=== PATIENT | female | born 1980 ===

== ENCOUNTER 2019-10-01 08:38 | Outpatient (CLI) | payer OTHER | END 2019-10-01 09:04 | disposition home or self-care (01) | LOC: MAMO-SONO 08:38 | DX: N60.11 Diffuse cystic mastopathy of right breast (principal); N60.12 Diffuse cystic mastopathy of left breast; Z12.31 Encounter for screening mammogram for malignant neoplasm of breast; R10.2 Pelvic and perineal pain ==

== ENCOUNTER 2021-01-30 08:22 | Outpatient (CLI) | payer OTHER | END 2021-01-30 08:36 | disposition home or self-care (01) | LOC: MAMO-SONO 08:22 | PROVIDERS: ATTEND Family Medicine | DX: N60.11 Diffuse cystic mastopathy of right breast (principal); N60.12 Diffuse cystic mastopathy of left breast ==

== ENCOUNTER 2021-03-23 10:35 | Outpatient (CLI) | payer OTHER | END 2021-03-23 10:54 | disposition home or self-care (01) | LOC: SONOGRAMA 10:35 | PROVIDERS: ATTEND Family Medicine | DX: C54.1 Malignant neoplasm of endometrium (principal); D25.9 Leiomyoma of uterus, unspecified ==

== ENCOUNTER 2021-03-30 05:45 | Day surgery (SDC) | payer OTHER | END 2021-03-30 17:20 | disposition home or self-care (01) | LOC: CIR.AMB 05:45 | PROVIDERS: ATTEND Surgery | DX: N60.82 Other benign mammary dysplasias of left breast (principal); N60.21 Fibroadenosis of right breast; Z90.13 Acquired absence of bilateral breasts and nipples; Z20.822 Contact with and (suspected) exposure to COVID-19 ==

== ENCOUNTER 2021-09-17 08:48 | Outpatient (CLI) | payer OTHER | END 2021-09-17 08:56 | disposition home or self-care (01) | LOC: SONOGRAMA 08:48 | PROVIDERS: ATTEND Family Medicine | DX: M76.02 Gluteal tendinitis, left hip (principal) ==

== ENCOUNTER 2021-10-16 13:28 | Outpatient (CLI) | payer OTHER | END 2021-10-16 13:29 | disposition home or self-care (01) | LOC: SONOGRAMA 13:28 | PROVIDERS: ATTEND Surgery | DX: M60.11 Interstitial myositis, shoulder (principal); D05.12 Intraductal carcinoma in situ of left breast ==

== ENCOUNTER 2022-07-08 11:40 | Outpatient (CLI) | payer OTHER | END 2022-07-08 11:47 | disposition home or self-care (01) | LOC: SONOGRAMA 11:40 | PROVIDERS: ATTEND Internal Medicine | DX: D05.12 Intraductal carcinoma in situ of left breast (principal) ==

== ENCOUNTER 2022-10-11 08:02 | Outpatient (CLI) | payer OTHER | END 2022-10-11 08:21 | disposition home or self-care (01) | LOC: SONOGRAMA 08:02 | PROVIDERS: ATTEND Family Medicine | DX: R10.2 Pelvic and perineal pain (principal); R59.0 Localized enlarged lymph nodes ==

== ENCOUNTER → 2022-12-13 | Outpatient (CLI) | payer OTHER | END | disposition home or self-care (01) | LOC: SONOGRAMA 09:41 | PROVIDERS: ATTEND Surgery | DX: N60.11 Diffuse cystic mastopathy of right breast (principal); N60.12 Diffuse cystic mastopathy of left breast ==

== ENCOUNTER 2023-01-24 08:42 | Outpatient (CLI) | payer OTHER | END 2023-01-24 08:51 | disposition home or self-care (01) | LOC: RAD 08:42 | PROVIDERS: ATTEND Family Medicine | DX: M54.6 Pain in thoracic spine (principal) ==

== ENCOUNTER 2023-01-28 08:38 | Outpatient (CLI) | payer OTHER | END 2023-01-28 08:45 | disposition home or self-care (01) | LOC: SONOGRAMA 08:38 | PROVIDERS: ATTEND Family Medicine | DX: M54.6 Pain in thoracic spine (principal) ==

== ENCOUNTER 2023-08-13 08:44 | Outpatient (CLI) | payer OTHER | END 2023-08-13 08:52 | disposition home or self-care (01) | LOC: SONOGRAMA 08:44 | PROVIDERS: ATTEND Family Medicine | DX: R10.9 Unspecified abdominal pain (principal) ==

== ENCOUNTER 2024-12-22 07:37 | Outpatient (CLI) | payer OTHER | END 2024-12-22 07:40 | disposition home or self-care (01) | LOC: SONOGRAMA 07:37 | PROVIDERS: ATTEND Family Medicine | DX: R10.2 Pelvic and perineal pain (principal) ==

== ENCOUNTER 2025-06-23 08:04 | Outpatient (CLI) | payer OTHER | END 2025-06-23 08:06 | disposition home or self-care (01) | LOC: TOM 08:04 | PROVIDERS: ATTEND Family Medicine | DX: D10.4 Benign neoplasm of tonsil (principal) ==

== ENCOUNTER 2025-08-04 12:54 | Outpatient (CLI) | payer OTHER | END 2025-08-04 13:04 | disposition home or self-care (01) | LOC: SONOGRAMA 12:54 | DX: R10.32 Left lower quadrant pain (principal) ==